=== PATIENT | female | born 1990 | race Caucasian/White ===

== ENCOUNTER → 2018-12-17 | Outpatient (CLI) | payer BC ==
[~2018-12-17] MED LIST: ALBU90OI INH; ALPR.5CR; AMIT10 PO; BENTYL20 MG PO; BUSP15 PO; CEPH500 PO; CHOL10002 PO; CYCL10 PO; DICY20 PO; DOC250 PO; ESCI10; HYDACE5 PO; HYOS.125 SL; Hydrocodone-Ap1 EA23 PO; NAPR550 PO; Norco 10-325 T1 EACH PO; OMEP20ER PO; ONDA4 PO; PRED20 PO; Percocet 5-3251 EACH PO; RXHYDACE PO; RXNAPNA550 PO; SULTRIDS PO; Valium5 MG PO; ZOLP10 PO
== END | disposition home or self-care (01) ==
LOC: LAB SHORT 10:42 → LAB 10:42
DX: L08.0 Pyoderma (principal); L98.9 Disorder of the skin and subcutaneous tissue, unspecified
CPT/HCPCS: 87070; 87077; 87147; 87186; 87205

== ENCOUNTER → 2019-01-18 | Outpatient (CLI) | payer BC | END | disposition home or self-care (01) | LOC: LAB 11:55 → LAB SHORT 11:55 | PROVIDERS: Obstetrics & Gynecology | DX: Z01.419 Encounter for gynecological examination (general) (routine) without abnormal findings (principal) | CPT/HCPCS: G0123 ==

== ENCOUNTER 2019-04-18 12:41 | Day surgery (SDC) | payer BC ==
[~2019-04-18] VITALS: Ht 165.1 cm; Wt 73.3 kg
[2019-04-18] MEDS ORDERED: ACET325 (13:04)
--- NOTE | 2019-04-18 13:34 | NUR ---
04/18/[address] AWARE OF NO CURRENT EKG AVAILABLE. OK TO PROCEED.
== END 2019-04-18 15:29 | disposition home or self-care (01) ==
LOC: ORSCSDS 12:41
PROVIDERS: Obstetrics & Gynecology
PROC: 0UJD8ZZ Inspection of Uterus and Cervix, Via Natural or Artificial Opening Endoscopic (ICD-10-PCS; principal; 2019-04-18 14:00)
PROC: 0DNW4ZZ Release Peritoneum, Percutaneous Endoscopic Approach (ICD-10-PCS; principal; 2019-04-18 14:00)
DX: R10.2 Pelvic and perineal pain (principal); N80.3 Endometriosis of pelvic peritoneum; D25.0 Submucous leiomyoma of uterus; Z87.891 Personal history of nicotine dependence
CPT/HCPCS: J0171; J1100; J1885; J2001; J2250; J2405; J2704; J3010; J7120

== ENCOUNTER → 2020-04-23 | Outpatient (CLI) | payer BC ==
[~2020-04-23] MED LIST changes: +ACET325; +IBUP800 PO; +PRENATAL TABLE1 EAC2 PO; +TUMS500 MG PO
[2020-04-23 13:29] LABS: BASOPHILS ABSOLUTE AUTO 0.06 K/mm3 (0.00-0.23); BASOPHILS PERCENT AUTO 1 % (0-2); EOSINOPHILS ABSOLUTE AUTO 0.08 K/mm3 (0.00-0.68); EOSINOPHILS PERCENT AUTO 1 % (0-6); Hematocrit 38.6 % (33.0-51.0); Hemoglobin 12.1 g/dL (11.5-16.0); IMMATURE GRAN ABSOLUTE AUTO 0.11 K/mm3 (0.00-0.10); IMMATURE GRAN PERCENT AUTO 1 % (0-1); LYMPHOCYTES ABSOLUTE AUTO 1.19 K/mm3 (0.84-5.20); LYMPHOCYTES PERCENT AUTO 11 % (21-46); MONOCYTES ABSOLUTE AUTO 0.68 K/mm3 (0.16-1.47); MONOCYTES PERCENT AUTO 6 % (4-13); Mean Corpuscular HGB 29.4 pg (26.0-34.0); Mean Corpuscular HGB Conc 31.3 g/dL (31.5-36.5); Mean Corpuscular Volume 94 fL (80-100); Mean Platelet Volume 11.9 fL (9.1-12.4); NEUTROPHILS PERCENT AUTO 81 % (41-73); Platelet Count 287 K/mm3 (150-400); RDW Coefficient Variation 13.1 % (11.7-14.2); RDW Standard Deviation 44.8 fL (35.1-46.3); Red Blood Cell Count 4.11 M/mm3 (3.80-5.20); White Blood Cell Count 11.12 K/mm3 (4.00-11.30)
== END | disposition home or self-care (01) ==
LOC: LAB SHORT 10:35
PROVIDERS: Obstetrics & Gynecology
DX: O09.892 Supervision of other high risk pregnancies, second trimester (principal)
CPT/HCPCS: 82950; 85025

== ENCOUNTER 2020-07-14 20:04 | Inpatient (IN) | payer BC ==
[~2020-07-14] VITALS: Ht 165.1 cm; Wt 97.2 kg
[~2020-07-14 20:04] MED LIST changes: -IBUP800 PO; -PRENATAL TABLE1 EAC2 PO; -TUMS500 MG PO
[2020-07-14] MEDS ORDERED: PRENATAL TABLE1 EAC2 PO (20:55)
[2020-07-14] MEDS ORDERED: TUMS500 MG PO (20:55)
[2020-07-14 21:00] LABS: BASOPHILS ABSOLUTE AUTO 0.05 K/mm3 (0.00-0.23); BASOPHILS PERCENT AUTO 0 % (0-2); EOSINOPHILS PERCENT AUTO 1 % (0-6); Hematocrit 34.2 % (33.0-51.0); Hemoglobin 11.2 g/dL (11.5-16.0); IMMATURE GRAN ABSOLUTE AUTO 0.11 K/mm3 (0.00-0.10); IMMATURE GRAN PERCENT AUTO 1 % (0-1); LYMPHOCYTES ABSOLUTE AUTO 1.56 K/mm3 (0.84-5.20); LYMPHOCYTES PERCENT AUTO 14 % (21-46); MONOCYTES ABSOLUTE AUTO 0.68 K/mm3 (0.16-1.47); MONOCYTES PERCENT AUTO 6 % (4-13); Mean Corpuscular HGB 28.9 pg (26.0-34.0); Mean Corpuscular HGB Conc 32.7 g/dL (31.5-36.5); Mean Corpuscular Volume 88 fL (80-100); Mean Platelet Volume 11.4 fL (9.1-12.4); NEUTROPHILS ABSOLUTE AUTO 8.99 K/mm3 (1.96-9.15); NEUTROPHILS PERCENT AUTO 78 % (41-73); Platelet Count 241 K/mm3 (150-400); RDW Coefficient Variation 13.1 % (11.7-14.2); RDW Standard Deviation 42.5 fL (35.1-46.3); Red Blood Cell Count 3.87 M/mm3 (3.80-5.20); White Blood Cell Count 11.49 K/mm3 (4.00-11.30)
[2020-07-14 21:19] LABS: Alanine Aminotransfer (ALT/SGP 17 U/L (12-78); Albumin, Blood 2.6 g/dL (3.4-5.0); Albumin/Globulin Ratio 0.7 (0.8-1.8); Alk Phos 119 U/L (50-136); Anion Gap 10 mmol/L (6-16); Aspartate Aminotrans (AST/SGOT 11 U/L (12-37); Bilirubin, Total 0.2 mg/dL (0.1-1.0); Blood Urea Nitrogen 11 mg/dL (8-24); Bun/Creatinine Ratio 17.4 (12.0-20.0); CO2, Blood 22 mmol/L (21-32); Calcium, Blood 8.7 mg/dL (8.5-10.1); Chloride, Blood 109 mmol/L (98-108); Creatinine, Blood 0.63 mg/dL (0.40-1.00); Globulin, Blood 3.8 g/dL (2.2-4.0); Glomerular Filtration Rate >60 (60-); Glucose, Blood 127 mg/dL (70-99); Potassium, Blood 3.5 mmol/L (3.5-5.5); Sodium, Blood 141 mmol/L (136-145); Total Protein, Blood 6.4 g/dL (6.4-8.2)
[2020-07-15] MEDS ORDERED: IBUP800 PO (20:22)
--- NOTE | 2020-07-15 23:20 | NUR ---
DISCHARGE MOTHER DISCHARGED TO BOARDER STATUS. PT VERBALIZED AN UNDERSTANDING OF ALL DISCHARGE INSTRUCTIONS. HARD RX FOR MOTRIN GIVEN TO PT. PPFU APPT MADE. PT DECLINED MMR VACCINE. IV DC'D.
== END 2020-07-15 23:31 | disposition home or self-care (01) | DRG 806 ==
LOC: OBS 20:04 → BC 20:05 → OBS 20:27 → BC 20:29
PROVIDERS: ADMIT Obstetrics & Gynecology
PROC: 10E0XZZ Delivery of Products of Conception, External Approach (ICD-10-PCS; principal; 2020-07-14)
PROC: 10907ZC Drainage of Amniotic Fluid, Therapeutic from Products of Conception, Via Natural or Artificial Opening (ICD-10-PCS; 2020-07-14)
DX: O99.344 Other mental disorders complicating childbirth (principal); O10.92 Unspecified pre-existing hypertension complicating childbirth; Z37.0 Single live birth; Z3A.38 38 weeks gestation of pregnancy; F41.9 Anxiety disorder, unspecified; F43.10 Post-traumatic stress disorder, unspecified; F32.9 Major depressive disorder, single episode, unspecified; Z87.891 Personal history of nicotine dependence; Z88.8 Allergy status to other drugs, medicaments and biological substances; Z28.21 Immunization not carried out because of patient refusal; Z82.79 Family history of other congenital malformations, deformations and chromosomal abnormalities
CPT/HCPCS: 36415; 80053; 85025; 86850; 86900; 86901; A9270; J1885; J2210; J2590; J7120

== ENCOUNTER → 2022-03-02 | Outpatient (CLI) | payer BC ==
[~2022-03-02] MED LIST changes: +IBUP800 PO; +PRENATAL TABLE1 EAC2 PO; +TUMS500 MG PO
== END ==
LOC: LAB 08:10 → LAB SHORT 08:10
DX: L08.0 Pyoderma (principal)
CPT/HCPCS: 87070; 87077; 87147; 87186; 87205

== ENCOUNTER → 2022-07-20 | Outpatient (CLI) | payer BC | END | disposition home or self-care (01) | LOC: LAB SHORT 13:47 → LAB 13:47 | DX: N92.0 Excessive and frequent menstruation with regular cycle (principal) | CPT/HCPCS: 88305 ==

== ENCOUNTER 2022-10-25 14:45 | Inpatient (IN) | payer OTHER ==
[~2022-10-25] VITALS: Ht 165.1 cm; Wt 81.4 kg
[2022-10-25 15:24] LABS: BASOPHILS ABSOLUTE AUTO 0.07 K/mm3 (0.00-0.23); BASOPHILS PERCENT AUTO 1 % (0-2); EOSINOPHILS ABSOLUTE AUTO 0.44 K/mm3 (0.00-0.68); EOSINOPHILS PERCENT AUTO 5 % (0-6); Hematocrit 40.8 % (33.0-51.0); Hemoglobin 13.7 g/dL (11.5-16.0); IMMATURE GRAN ABSOLUTE AUTO 0.02 K/mm3 (0.00-0.10); IMMATURE GRAN PERCENT AUTO 0 % (0-1); LYMPHOCYTES ABSOLUTE AUTO 1.88 K/mm3 (0.84-5.20); LYMPHOCYTES PERCENT AUTO 21 % (21-46); MONOCYTES ABSOLUTE AUTO 0.52 K/mm3 (0.16-1.47); MONOCYTES PERCENT AUTO 6 % (4-13); Mean Corpuscular HGB 30.8 pg (26.0-34.0); Mean Corpuscular HGB Conc 33.6 g/dL (31.5-36.5); Mean Corpuscular Volume 92 fL (80-100); Mean Platelet Volume 11.3 fL (9.1-12.4); NEUTROPHILS ABSOLUTE AUTO 6.03 K/mm3 (1.96-9.15); NEUTROPHILS PERCENT AUTO 67 % (41-73); Platelet Count 298 K/mm3 (150-400); RDW Coefficient Variation 12.9 % (11.7-14.2); RDW Standard Deviation 43.8 fL (35.1-46.3); Red Blood Cell Count 4.45 M/mm3 (3.80-5.20); White Blood Cell Count 8.96 K/mm3 (4.00-11.30)
[2022-10-25 15:40] LABS: Albumin, Blood 3.8 g/dL (3.4-5.0); Bilirubin, Total 0.3 mg/dL (0.1-1.0); Bun/Creatinine Ratio 16.3 (12.0-20.0); Calcium, Blood 9.6 mg/dL (8.5-10.1); Creatinine, Blood 0.92 mg/dL (0.40-1.00); Globulin, Blood 3.8 g/dL (2.2-4.0); Potassium, Blood 3.8 mmol/L (3.5-5.5); Total Protein, Blood 7.6 g/dL (6.4-8.2)
[2022-10-25 21:23] VITALS: BP 118/72
[2022-10-26 04:25] VITALS: BP 125/80
[2022-10-26 05:00] LABS: BASOPHILS ABSOLUTE AUTO 0.08 K/mm3 (0.00-0.23); BASOPHILS PERCENT AUTO 1 % (0-2); EOSINOPHILS PERCENT AUTO 6 % (0-6); Hematocrit 35.9 % (33.0-51.0); Hemoglobin 11.7 g/dL (11.5-16.0); IMMATURE GRAN ABSOLUTE AUTO 0.02 K/mm3 (0.00-0.10); IMMATURE GRAN PERCENT AUTO 0 % (0-1); LYMPHOCYTES ABSOLUTE AUTO 1.88 K/mm3 (0.84-5.20); LYMPHOCYTES PERCENT AUTO 28 % (21-46); MONOCYTES ABSOLUTE AUTO 0.58 K/mm3 (0.16-1.47); MONOCYTES PERCENT AUTO 9 % (4-13); Mean Corpuscular HGB 30.5 pg (26.0-34.0); Mean Corpuscular HGB Conc 32.6 g/dL (31.5-36.5); Mean Corpuscular Volume 94 fL (80-100); Mean Platelet Volume 11.4 fL (9.1-12.4); NEUTROPHILS ABSOLUTE AUTO 3.77 K/mm3 (1.96-9.15); NEUTROPHILS PERCENT AUTO 56 % (41-73); Platelet Count 260 K/mm3 (150-400); RDW Coefficient Variation 12.9 % (11.7-14.2); RDW Standard Deviation 44.6 fL (35.1-46.3); Red Blood Cell Count 3.83 M/mm3 (3.80-5.20); White Blood Cell Count 6.73 K/mm3 (4.00-11.30)
[2022-10-26 05:31] LABS: Albumin, Blood 3.4 g/dL (3.4-5.0); Albumin/Globulin Ratio 1.2 (0.8-1.8); Bilirubin, Total 0.2 mg/dL (0.1-1.0); Bun/Creatinine Ratio 12.9 (12.0-20.0); Creatinine, Blood 0.93 mg/dL (0.40-1.00); Globulin, Blood 2.9 g/dL (2.2-4.0); Potassium, Blood 3.8 mmol/L (3.5-5.5); Total Protein, Blood 6.3 g/dL (6.4-8.2)
[2022-10-26 08:10] VITALS: BP 106/85
--- NOTE | 2022-10-26 08:17 | NUR ---
SHIFT SUMMARY PATIENT A/OX4, ARRIVED TO UNIT FROM ED WITH SEVER EPIGASTRIC PAIN. C/O RUQ PAIN THAT HAS BEEN GETTING WORSE OVER LAST 2 WEEKS WHENEVER EATING. VSS, ON RA. PAIN MANAGED WITH PRN MEDICATION, DILAUDID AND NORCO. INDEPENDANT IN ROOM. PIV TO RIGHT AC, LR@150. NO ACUTE CHANGES OVERNIGHT. EDUCATED ON SAFETY/INJURY RISK OF O2, VERBALIZED UNDERSTANDING, DENIES SMOKING. BED LOW, CALL LIGHT WITHIN REACH.
--- NOTE | 2022-10-26 11:00 | NUR ---
"Spiritual Care Visit | Pt. referral Pt. is awake in bed when she welcomes my visit. Spouse and two year old daughter are present. Facilitated a life review and sought to establish rapport. Listened with empathy, interest, and a calming presence. Pt. displayed evidence of being emotionally guarded. Established a theraputic alliance that will allow this radiologic technician to return. Prayed with Pt. and family. Pt. verbalized gratitude for the Spiritual Care visit."
[2022-10-26 12:30] VITALS: BP 127/77
--- NOTE | 2022-10-26 12:51 | NUR ---
10/26/22 [address] EDGAR; SEE ANESTHESIA RECORDS. 4% LIDOCAINE 3ML ATOMIZED TO BACK OF THROAT PRIOR TO PROCEDURE START PER MD ORDERS.
[2022-10-26 13:57] VITALS: BP 112/70
[2022-10-26 16:50] VITALS: BP 108/68
--- NOTE | 2022-10-26 17:09 | NUR ---
SHIFT SUMMARY PATIENT HAVING INTENSE PAIN AT START OF SHIFT. RESTLESS AND POSITIONING SELF IN POSITION IN A PRONE POSITION. PATIENT EMOTIONAL AND IRRITABLE. PATIENT ADMITS THAT SHE HAS HAD A LOT OF STRESSORS AND HAD TO CANCEL HER HYSTERECTOMY SURGERY RELATED TO INSURANCE CHANGES BECAUSE OF HAVING TO CHANGE JOBS. PATIENT MEDICATED WITH PAIN MEDS AND NAUSEA MEDS PER MAR. PATIENT DRINKING CLEAR LIQUIDS AND HAVING SOME ABDOMINAL CRAMPING AFTER BUT NOT SEVERE WHEN SHE ATE FOODS. PATIENT HAD UPPER ENDOSCOPY TODAY AND BIOPSIES TAKEN. NO ULCER FOUND BUT REPORTED TO HAVE GASTRITIS. PATIENT TEARFUL AFTER ENDOSCOPY BECAUSE NO FINDINGS FOR INTENSE PAIN. PATIENT TO HAVE HITA SCAN IN THE AM. PATIENT INSTRUCTED ON NPO AFTER MIDNIGHT AND NO PAIN MEDS AFTER MIDNIGHT. IN THE ROOM WHEN UPDATED ABOUT HITA SCAN AND PROCESS. PAITENT EDUCATED ON FIRE SAFETY AND PREVENTION IN THE HOSPITAL PATIENT REPORTS NO FLAMABLE ITEMS IN POSSESSION.
[2022-10-26 19:06] VITALS: BP 132/80
[2022-10-27] VITALS (17 sets, daily range): BP systolic 93–131; BP diastolic 48–76
[2022-10-27 04:59] LABS: BASOPHILS ABSOLUTE AUTO 0.09 K/mm3 (0.00-0.23); BASOPHILS PERCENT AUTO 1 % (0-2); EOSINOPHILS ABSOLUTE AUTO 0.38 K/mm3 (0.00-0.68); EOSINOPHILS PERCENT AUTO 4 % (0-6); Hematocrit 35.5 % (33.0-51.0); Hemoglobin 11.9 g/dL (11.5-16.0); IMMATURE GRAN ABSOLUTE AUTO 0.04 K/mm3 (0.00-0.10); IMMATURE GRAN PERCENT AUTO 0 % (0-1); LYMPHOCYTES ABSOLUTE AUTO 1.51 K/mm3 (0.84-5.20); LYMPHOCYTES PERCENT AUTO 14 % (21-46); MONOCYTES ABSOLUTE AUTO 0.63 K/mm3 (0.16-1.47); MONOCYTES PERCENT AUTO 6 % (4-13); Mean Corpuscular HGB 31.3 pg (26.0-34.0); Mean Corpuscular HGB Conc 33.5 g/dL (31.5-36.5); Mean Corpuscular Volume 93 fL (80-100); Mean Platelet Volume 11.5 fL (9.1-12.4); NEUTROPHILS ABSOLUTE AUTO 8.29 K/mm3 (1.96-9.15); NEUTROPHILS PERCENT AUTO 76 % (41-73); Platelet Count 233 K/mm3 (150-400); RDW Coefficient Variation 12.9 % (11.7-14.2); RDW Standard Deviation 44.3 fL (35.1-46.3); White Blood Cell Count 10.94 K/mm3 (4.00-11.30)
--- NOTE | 2022-10-27 05:14 | NUR ---
SHIFT SUMMARY PATIENT A/OX4, QUIET, SOFT SPOKEN, SPOUSE AT BEDSIDE. C/O PAIN TO RUQ, TOLERATED PRN DILAUDID WELL. VERBALIZED UNDERSTANDING OF NPO STATUS AFTER MID-NIGHT, COOPERATIVE. INDEPENDANT IN ROOM. NO ACUTE CHANGES OVERNIGHT. REVIEWED FIRE SAFETY AND INJURY RISK R/T O2 USE, VERBALIZED UNDERSTANDING, DENIES ANY IGNITION SOURCES IN POSSESSION. BED LOW, CALL LIGHT WITHIN REACH.
[2022-10-27 05:46] LABS: Albumin, Blood 3.2 g/dL (3.4-5.0); Albumin/Globulin Ratio 1.1 (0.8-1.8); Bilirubin, Total 0.4 mg/dL (0.1-1.0); Bun/Creatinine Ratio 8.1 (12.0-20.0); Calcium, Blood 8.6 mg/dL (8.5-10.1); Creatinine, Blood 0.86 mg/dL (0.40-1.00); Globulin, Blood 2.8 g/dL (2.2-4.0); Potassium, Blood 3.8 mmol/L (3.5-5.5)
--- NOTE | 2022-10-27 07:26 | NUR ---
PT PICKED UP BY [facility] TO BE TAKEN FOR HER HIDA SCAN. APPEARS STABLE W/O ANY SIGNS OF DISTRESS AT THIS TIME.
--- NOTE | 2022-10-27 12:16 | NUR ---
P.dalila is awake in bed and welcomes my visit. Spouse and young miky are present. Pt. is pleasant, but verbalizes that she will be having surgery this afternoon. Listen with empathy, intrest and rapport is established with both Pt. and spouse. Another health care worker came to the bedside, and the family requested jossie bottle inspector to return after surgery.
--- NOTE | 2022-10-27 12:56 | NUR ---
THE PATIENT WAS BROUGHT TO DAY SURGERY FOR HER PROCEDURE.
--- NOTE | 2022-10-27 15:38 | NUR ---
PT BACK TO ROOM FROM PACU PT BROUGHT BACK TO HER ROOM FROM PACU, REPORT RECEIVED, A/OX 4 BUT VERY PAINFUL, TRANSFERRED TO HER BED INDEPENDENTLY, ABD HAS 4 LAP SITES WITH STERI STRIPS WHICH ARE C/D/I. DISUSSED PAIN MANAGEMENT WITH HER.
--- NOTE | 2022-10-27 19:09 | NUR ---
SHIFT SUMMARY POD0 LAP ALONSO, A/OX4, VSS, TOLERATING PO THOUGH SHE HAS LOW APPETITE AND ANXIETY R/T HAVING A BM AFTER TAKING NARCOTICS SINCE ADMISSION, DISCUSSED STOOL SOFTENERS AND LAXATIVES TO HELP MAKE A BM EASIER FOR HER. PT VERY PAINFUL STILL AFTER SURGERY THOUGH SHE IS ALSO VERY ANXIOUS. LAP SITES FROM SURGERY ARE C/D/I WITH STERI STRIPS. NO ACUTE EVENTS THIS SHIFT, CALL LIGHT IN REACH, REPORT GIVEN TO KEKE JOHNSON.
[2022-10-28 04:06] VITALS: BP 107/71
[2022-10-28 06:04] LABS: BASOPHILS ABSOLUTE AUTO 0.03 K/mm3 (0.00-0.23); BASOPHILS PERCENT AUTO 0 % (0-2); EOSINOPHILS ABSOLUTE AUTO 0.01 K/mm3 (0.00-0.68); EOSINOPHILS PERCENT AUTO 0 % (0-6); Hematocrit 35.9 % (33.0-51.0); IMMATURE GRAN ABSOLUTE AUTO 0.04 K/mm3 (0.00-0.10); IMMATURE GRAN PERCENT AUTO 0 % (0-1); LYMPHOCYTES ABSOLUTE AUTO 0.82 K/mm3 (0.84-5.20); LYMPHOCYTES PERCENT AUTO 8 % (21-46); MONOCYTES ABSOLUTE AUTO 0.71 K/mm3 (0.16-1.47); MONOCYTES PERCENT AUTO 7 % (4-13); Mean Corpuscular HGB 30.8 pg (26.0-34.0); Mean Corpuscular HGB Conc 33.4 g/dL (31.5-36.5); Mean Corpuscular Volume 92 fL (80-100); Mean Platelet Volume 11.7 fL (9.1-12.4); NEUTROPHILS ABSOLUTE AUTO 9.17 K/mm3 (1.96-9.15); NEUTROPHILS PERCENT AUTO 85 % (41-73); Platelet Count 257 K/mm3 (150-400); RDW Coefficient Variation 12.5 % (11.7-14.2); RDW Standard Deviation 42.3 fL (35.1-46.3); Red Blood Cell Count 3.89 M/mm3 (3.80-5.20); White Blood Cell Count 10.78 K/mm3 (4.00-11.30)
--- NOTE | 2022-10-28 06:41 | NUR ---
ABNER REMAINS CONCERNED OF HER NEED FOR PAIN MEDICATIONS AND THE POSSIBILITY OF CONSTIPATION. SHE WAS STARTING TO PASS GAS THIS MORNING. PERHAPS MILK OF MAG COULD HELP HER. THE FOUR LAP ALONSO INCISIONS ARE COVERED WITH STERI STRIPS AND CLEAN,DRY AND INTACT WITHOUT DRAINAGE,REDNESS OR WARMTH. OVERNIGHT, ABNER REQUIRED ORAL PAIN MEDICATION AT 2100, 0100 AND 0530. INTERVAL ON NORCO REDUCED FROM EVERY 6 HOURS NEEDED TO EVERY FOUR. SHE WAS HOPING TO NOT HAVE TO USE THE IV DILAUDID ANY MORE. HOWEVER, SHE WOKE UP TEARFUL AROUND 0400 FEELING NAUSEATED AND IN PAIN. OOB INDEPENDENTLY IN ROOM HER POOR APPETITE REMAINS
[2022-10-28 06:46] LABS: Bun/Creatinine Ratio 13.7 (12.0-20.0); Calcium, Blood 8.8 mg/dL (8.5-10.1); Creatinine, Blood 0.88 mg/dL (0.40-1.00); Potassium, Blood 4.3 mmol/L (3.5-5.5)
[2022-10-28 07:20] VITALS: BP 97/61
[2022-10-28 15:04] VITALS: BP 113/72
[2022-10-28] MEDS ORDERED: ONDA4ODT MM (18:18)
[2022-10-28] MEDS ORDERED: PANT40 PO (18:18)
--- NOTE | 2022-10-28 19:11 | NUR ---
SHIFT SUMMARY AND DISCHARGE PATIENT ALERT AND INDEPENDENT IN THE ROOM. PATIENT MEDICATED FOR PAIN AND NAUSEA THROUGHOUT THE SHIFT. PAIN IMPROVED AND PATIENT ABLE TO TOLERATE SOME PO. PATIENT HAD A BM PRIOR TO DISCHARGE. DISCHARGE INSTRUCTIONS REVIEWED WITH PATIENT. IV DC'D AND BELONGINGS GIVEN TO PATIENT. ROOM CHECK DONE WITH PATIENT. STERISTRIPS IN PLACE. PATIENT STATES SHE HAS HAD SOME OOZING FROM MIDLINE SITE. SOME BRUISING NOTED AROUND STERISTRIPS.
== END 2022-10-28 18:58 | disposition home or self-care (01) | DRG 357 ==
LOC: ER 14:45 → MEDS 14:46 → ENPENDDIS 10-28 15:09 → MEDS 10-28 18:58
PROVIDERS: Internal Medicine; Nurse Practitioner Acute Care; Physician Assistant; Surgery; ADMIT Student in an Organized Health Care Education/Training Program
PROC: 0DB78ZX Excision of Stomach, Pylorus, Via Natural or Artificial Opening Endoscopic, Diagnostic (ICD-10-PCS; principal; 2022-10-26 12:00)
PROC: 0FT44ZZ Resection of Gallbladder, Percutaneous Endoscopic Approach (ICD-10-PCS; 2022-10-27)
PROC: BF121ZZ Fluoroscopy of Gallbladder using Low Osmolar Contrast (ICD-10-PCS; 2022-10-27)
DX: K29.70 Gastritis, unspecified, without bleeding (principal); K81.0 Acute cholecystitis; K82.8 Other specified diseases of gallbladder; R10.13 Epigastric pain; F43.12 Post-traumatic stress disorder, chronic; F32.A Depression, unspecified; N80.9 Endometriosis, unspecified; K90.0 Celiac disease; F41.1 Generalized anxiety disorder; G89.29 Other chronic pain; I10 Essential (primary) hypertension; D50.9 Iron deficiency anemia, unspecified; F40.240 Claustrophobia; G43.909 Migraine, unspecified, not intractable, without status migrainosus; N93.9 Abnormal uterine and vaginal bleeding, unspecified; Z87.891 Personal history of nicotine dependence; Z98.890 Other specified postprocedural states; Z88.8 Allergy status to other drugs, medicaments and biological substances; Z87.19 Personal history of other diseases of the digestive system; Z79.899 Other long term (current) drug therapy
CPT/HCPCS: 36415; 71045; 74177; 74300; 76705; 78227; 80048; 80053; 83690; 84484; 84703; 85025; 88304; 88305; 88342; 96361; 96374-59; 96375; 96376; 99285-25; A9270; A9500; C1729; C9113; G0378; J0690; J1100; J1170; J1885; J2001; J2250; J2270; J2405; J2704; J2765; J2805; J3010; J7030; J7120; Q9967

== ENCOUNTER → 2022-12-29 | Outpatient (CLI) | payer OTHER ==
[~2022-12-29] MED LIST changes: +ONDA4ODT MM; +PANT40 PO
[2022-12-29 18:09] LABS: BASOPHILS ABSOLUTE AUTO 0.04 K/mm3 (0.00-0.23); BASOPHILS PERCENT AUTO 0 % (0-2); EOSINOPHILS ABSOLUTE AUTO 0.08 K/mm3 (0.00-0.68); EOSINOPHILS PERCENT AUTO 1 % (0-6); Hemoglobin 13.2 g/dL (11.5-16.0); IMMATURE GRAN ABSOLUTE AUTO 0.04 K/mm3 (0.00-0.10); IMMATURE GRAN PERCENT AUTO 0 % (0-1); LYMPHOCYTES ABSOLUTE AUTO 1.64 K/mm3 (0.84-5.20); LYMPHOCYTES PERCENT AUTO 18 % (21-46); MONOCYTES ABSOLUTE AUTO 0.63 K/mm3 (0.16-1.47); MONOCYTES PERCENT AUTO 7 % (4-13); Mean Corpuscular HGB 30.2 pg (26.0-34.0); Mean Corpuscular HGB Conc 32.2 g/dL (31.5-36.5); Mean Corpuscular Volume 94 fL (80-100); Mean Platelet Volume 12.2 fL (9.1-12.4); NEUTROPHILS ABSOLUTE AUTO 6.85 K/mm3 (1.96-9.15); NEUTROPHILS PERCENT AUTO 74 % (41-73); Platelet Count 289 K/mm3 (150-400); RDW Coefficient Variation 12.3 % (11.7-14.2); RDW Standard Deviation 42.5 fL (35.1-46.3); Red Blood Cell Count 4.37 M/mm3 (3.80-5.20); White Blood Cell Count 9.28 K/mm3 (4.00-11.30)
[2022-12-29 19:25] LABS: Alanine Aminotransfer (ALT/SGP 28 U/L (12-78); Albumin/Globulin Ratio 1.1 (0.8-1.8); Alk Phos 66 U/L (50-136); Anion Gap 4 mmol/L (6-16); Aspartate Aminotrans (AST/SGOT 12 U/L (12-37); Bilirubin, Total 0.2 mg/dL (0.1-1.0); Blood Urea Nitrogen 14 mg/dL (8-24); Bun/Creatinine Ratio 18.4 (12.0-20.0); CHOL/HDL RATIO 4.3; CO2, Blood 25 mmol/L (21-32); Calcium, Blood 9.5 mg/dL (8.5-10.1); Chloride, Blood 109 mmol/L (98-108); Cholesterol 175 mg/dL (50-200); Creatinine, Blood 0.76 mg/dL (0.40-1.00); Globulin, Blood 3.5 g/dL (2.2-4.0); Glomerular Filtration Rate 107 (60-); Glucose, Blood 87 mg/dL (70-99); HDL Cholesterol 41 mg/dL (>39); LDL/HDL RATIO 2.7; Low Density Lipoprotein Chol 112 mg/dL (0-110); Potassium, Blood 3.8 mmol/L (3.5-5.5); Sodium, Blood 138 mmol/L (136-145); Total Protein, Blood 7.5 g/dL (6.4-8.2); Triglycerides 108 mg/dL (30-140); Very Low Density Lipoprot Chol 21 mg/dL (6-28)
== END | disposition home or self-care (01) ==
LOC: LAB SHORT 17:07 → LAB 17:07
PROVIDERS: Nurse Practitioner Family
DX: Z00.00 Encounter for general adult medical examination without abnormal findings (principal); N93.9 Abnormal uterine and vaginal bleeding, unspecified
CPT/HCPCS: 80053; 80061; 83036; 84443; 85025

== ENCOUNTER → 2023-01-02 | Outpatient (CLI) | payer OTHER ==
[2023-01-06 13:08] LABS: HPV 16 Negative (Negative); HPV 18 Negative (Negative); HPV OTHER HR TYPES Negative (Negative)
== END | disposition home or self-care (01) ==
LOC: LAB SHORT 17:31 → LAB 17:31
PROVIDERS: Advanced Practice Midwife
DX: R87.615 Unsatisfactory cytologic smear of cervix (principal)
CPT/HCPCS: 87624; G0145

== ENCOUNTER → 2023-03-24 | Outpatient (CLI) | payer OTHER ==
[~2023-03-24] MED LIST changes: +APRI1 EACH PO
[2023-03-24 17:03] LABS: Source, Urine Clean Catch
[2023-03-24 18:22] LABS: BASOPHILS ABSOLUTE AUTO 0.06 K/mm3 (0.00-0.23); BASOPHILS PERCENT AUTO 1 % (0-2); EOSINOPHILS ABSOLUTE AUTO 0.12 K/mm3 (0.00-0.68); EOSINOPHILS PERCENT AUTO 1 % (0-6); Hematocrit 40.6 % (33.0-51.0); Hemoglobin 12.8 g/dL (11.5-16.0); IMMATURE GRAN ABSOLUTE AUTO 0.05 K/mm3 (0.00-0.10); IMMATURE GRAN PERCENT AUTO 0 % (0-1); LYMPHOCYTES PERCENT AUTO 15 % (21-46); MONOCYTES ABSOLUTE AUTO 0.75 K/mm3 (0.16-1.47); MONOCYTES PERCENT AUTO 6 % (4-13); Mean Corpuscular HGB 29.6 pg (26.0-34.0); Mean Corpuscular HGB Conc 31.5 g/dL (31.5-36.5); Mean Corpuscular Volume 94 fL (80-100); Mean Platelet Volume 12.3 fL (9.1-12.4); NEUTROPHILS PERCENT AUTO 77 % (41-73); Platelet Count 310 K/mm3 (150-400); RDW Coefficient Variation 12.5 % (11.7-14.2); RDW Standard Deviation 43.6 fL (35.1-46.3); Red Blood Cell Count 4.33 M/mm3 (3.80-5.20); White Blood Cell Count 11.68 K/mm3 (4.00-11.30)
[2023-03-24 18:29] LABS: Appearance, Urine Clear (Clear); Bilirubin, Urine Neg (Neg); Blood, Urine Neg (Neg); Color, Urine Yellow (P-Yellow); Glucose Qualitative, Urine Neg (Neg); Ketones, Urine Neg (Neg); Leukocyte Esterase, Urine Neg (Neg); Nitrite, Urine Neg (Neg); Protein, Urine Neg (Neg); Specific Gravity, Urine 1.015 (1.003-1.022); Urobilinogen, Urine NORM (Normal)
== END | disposition home or self-care (01) ==
LOC: LAB 16:57 → LAB SHORT 16:57
PROVIDERS: Obstetrics & Gynecology
DX: Z01.818 Encounter for other preprocedural examination (principal)
CPT/HCPCS: 81003; 85025; 86850; 86900; 86901

== ENCOUNTER 2023-04-10 06:05 | Day surgery (SDC) | payer OTHER ==
[~2023-04-10] VITALS: Ht 165.1 cm; Wt 81.0 kg
[2023-04-10] VITALS (18 sets, daily range): BP systolic 93–146; BP diastolic 56–135
--- NOTE | 2023-04-10 06:45 | NUR ---
Ambulatory in Day Surgery. Surgical site prepped with 2% Chlorhexidine cloth wipe. History, Chart, Medications and Allergies reviewed before start of procedure. Lungs clear T/O to Auscultation. Patient confirms NPO status and agrees with scheduled surgery. Pre-Op teaching done. Pt verbalizes understanding. Patient States Post-Procedure ride home has been arranged. PT BELONGINGS PLACED [facility]ATH [facility].
--- NOTE | 2023-04-10 11:34 | NUR ---
ARRIVAL SUMMARY PATIENT ARRIVED TO THE FLOOR AND SLID FROM [facility] TO BED. A/O X4. PATIENT REPORTING PAIN 7/10 AT THIS TIME. ABDOMINAL LAP SITES X4, WITH DERMABOND- C/D/I. ABDOMINAL BINDER IN PLACE. HEATING PAD PLACED ON PATIENT AND ICE PACK FOR VAGINA. VITALS TAKEN. PT SPOUSE AT [facility].
[2023-04-11 03:13] VITALS: BP 105/64
[2023-04-11 06:11] LABS: BASOPHILS ABSOLUTE AUTO 0.04 K/mm3 (0.00-0.23); BASOPHILS PERCENT AUTO 1 % (0-2); EOSINOPHILS ABSOLUTE AUTO 0.08 K/mm3 (0.00-0.68); EOSINOPHILS PERCENT AUTO 1 % (0-6); Hematocrit 37.1 % (33.0-51.0); Hemoglobin 11.7 g/dL (11.5-16.0); IMMATURE GRAN ABSOLUTE AUTO 0.03 K/mm3 (0.00-0.10); IMMATURE GRAN PERCENT AUTO 0 % (0-1); LYMPHOCYTES ABSOLUTE AUTO 1.68 K/mm3 (0.84-5.20); LYMPHOCYTES PERCENT AUTO 21 % (21-46); MONOCYTES ABSOLUTE AUTO 0.62 K/mm3 (0.16-1.47); MONOCYTES PERCENT AUTO 8 % (4-13); Mean Corpuscular HGB 29.9 pg (26.0-34.0); Mean Corpuscular HGB Conc 31.5 g/dL (31.5-36.5); Mean Corpuscular Volume 95 fL (80-100); Mean Platelet Volume 11.4 fL (9.1-12.4); NEUTROPHILS ABSOLUTE AUTO 5.39 K/mm3 (1.96-9.15); NEUTROPHILS PERCENT AUTO 69 % (41-73); Platelet Count 229 K/mm3 (150-400); RDW Coefficient Variation 12.6 % (11.7-14.2); Red Blood Cell Count 3.91 M/mm3 (3.80-5.20); White Blood Cell Count 7.84 K/mm3 (4.00-11.30)
[2023-04-11 06:31] LABS: Bun/Creatinine Ratio 8.2 (12.0-20.0); Calcium, Blood 8.3 mg/dL (8.5-10.1); Creatinine, Blood 0.86 mg/dL (0.40-1.00); Potassium, Blood 3.8 mmol/L (3.5-5.5)
[2023-04-11 06:36] VITALS: BP 137/81
[2023-04-11 06:45] VITALS: BP 126/99
[2023-04-11 07:22] VITALS: BP 136/80
--- NOTE | 2023-04-11 08:38 | NUR ---
SHIFT SUMMARY NOC. PT A/O X4. PT NAUSEA AND WAS MEDICATED X2 THIS SHIFT. 1ST TIME WAS RELIEVED AND SECOND TIME WAS INEFFECTIVE. PT'S PAIN CONTROLLED WITH OXY 10MG WITH GOOD RELIEF. LAP SITES C/D/I WITH MILD BRUISING AROUND SITES, NO DRAINAGE. PT VOIDING VIA ACOSTA CATHETER. PT DID NOT EAT MUCH THIS SHIFT. PT REPORTED NAUSEA, LIGHTHEADEDNESS, AND GENERAL NOT FEELING WELL AT 0635. VITALS STABLE AND REASSURANCE PROVIDED. RECHECKED VITALS APPROX 10 MINUTES LATER AND WERE STILL STABLE. REPORT GIVEN TO DAY SHIFT RN AND EXPRESSED THESE NEW ONSET CONCERNS. PT RESTED WITH EYES CLOSED AND CALL LIGHT IN REACH.
--- NOTE | 2023-04-11 14:17 | NUR ---
DISCHARGE PT A&OX4, VSS/RA, CLIVE PO, VOIDING, AMB INDEPENDENTLY/DRESSED SELF, UP TO CHAIR SINCE BREAKFAST, PAIN MANAGED, IVs DC'D X2. DC INS PROVIDED. PT REP UNDERSTANDING THOSE INSTRUCTIONS. LEFT FLOOR VIA WC WITH JEWEL LATHE OPERATOR TO GO HOME WITH WITH ALL PERSONAL POSSESSIONS INCLUDING DC PACKET; REP HAVING SCRIPTS FILLED AT HOME.
== END 2023-04-11 13:46 | disposition home or self-care (01) ==
LOC: ORSCMMR 06:05 → ORD 07:30 → ORSCMMR 07:30 → SURS 11:08 → ORSCMMR 04-11 13:46
PROVIDERS: Obstetrics & Gynecology
PROC: 0UT7FZZ Resection of Bilateral Fallopian Tubes, Via Natural or Artificial Opening With Percutaneous Endoscopic Assistance (ICD-10-PCS; principal; 2023-04-10 07:30)
PROC: 0UT9FZZ Resection of Uterus, Via Natural or Artificial Opening With Percutaneous Endoscopic Assistance (ICD-10-PCS; principal; 2023-04-10 07:30)
DX: N92.0 Excessive and frequent menstruation with regular cycle (principal); N94.5 Secondary dysmenorrhea; O01.9 Hydatidiform mole, unspecified; D25.9 Leiomyoma of uterus, unspecified
CPT/HCPCS: 36415; 80048; 85025; 86850; 86900; 86901; 88307; 94760; A9270; J0690; J1100; J1170; J1885; J2250; J2371; J2405; J2704; J2765; J3010; J7040; J7120

== ENCOUNTER → 2024-02-21 | Outpatient (CLI) | payer BC ==
[~2024-02-21] MED LIST changes: +FLUO10 PO
[2024-02-21 10:06] LABS: BASOPHILS ABSOLUTE AUTO 0.04 K/mm3 (0.00-0.23); BASOPHILS PERCENT AUTO 1 % (0-2); EOSINOPHILS ABSOLUTE AUTO 0.12 K/mm3 (0.00-0.68); EOSINOPHILS PERCENT AUTO 2 % (0-6); Hematocrit 42.8 % (33.0-51.0); Hemoglobin 13.7 g/dL (11.5-16.0); IMMATURE GRAN ABSOLUTE AUTO 0.02 K/mm3 (0.00-0.10); IMMATURE GRAN PERCENT AUTO 0 % (0-1); LYMPHOCYTES ABSOLUTE AUTO 1.32 K/mm3 (0.84-5.20); LYMPHOCYTES PERCENT AUTO 23 % (21-46); MONOCYTES PERCENT AUTO 9 % (4-13); Mean Corpuscular HGB 30.4 pg (26.0-34.0); Mean Corpuscular Volume 95 fL (80-100); Mean Platelet Volume 11.4 fL (9.1-12.4); NEUTROPHILS ABSOLUTE AUTO 3.87 K/mm3 (1.96-9.15); NEUTROPHILS PERCENT AUTO 66 % (41-73); Platelet Count 252 K/mm3 (150-400); RDW Coefficient Variation 12.9 % (11.7-14.2); RDW Standard Deviation 45.2 fL (35.1-46.3); White Blood Cell Count 5.87 K/mm3 (4.00-11.30)
[2024-02-21 11:02] LABS: Albumin, Blood 4.1 g/dL (3.4-5.0); Albumin/Globulin Ratio 1.2 (0.8-1.8); Bilirubin, Total 0.5 mg/dL (0.1-1.0); Calcium, Blood 9.3 mg/dL (8.5-10.1); Creatinine, Blood 0.76 mg/dL (0.40-1.00); Globulin, Blood 3.3 g/dL (2.2-4.0); Potassium, Blood 3.8 mmol/L (3.5-5.5); Total Protein, Blood 7.4 g/dL (6.4-8.2)
== END | disposition home or self-care (01) ==
LOC: LAB SHORT 08:39 → LAB 08:39
PROVIDERS: Nurse Practitioner Family
DX: R42 Dizziness and giddiness (principal)
CPT/HCPCS: 80053; 85025